=== PATIENT | female | born 1995 | race Two or more races ===

== ENCOUNTER 2024-11-13 15:46 | Outpatient (CLI) | payer MEDICAID ==
[~2024-11-13] VITALS: Ht 152.4 cm; Wt 68.0 kg
[2024-11-13 16:09] LABS: TOTAL HEMOGLOBIN 15.6 G/dl (12.0-16.0)
[2024-11-13 16:44] VITALS: PULSE 74; RESP 16; O2SAT 99
[2024-11-13] MEDS: albuterol 2.5 MG/3 ML nebule NEB ONE (16:54)
[2024-11-13 16:56] VITALS: PULSE 77; RESP 16
== END 2024-11-13 23:59 | disposition home or self-care (01) ==
LOC: RT 15:46
PROVIDERS: ATTEND Physician Assistant
DX: J45.20 Mild intermittent asthma, uncomplicated (principal)
CPT/HCPCS: 85018; 94060; 94727; 94729; 94760